=== PATIENT | male | born 1980 | race Caucasian/White ===

== ENCOUNTER 2020-05-20 21:05 | Emergency (ER) | payer SELFPAY ==
[~2020-05-20] VITALS: Ht 185.4 cm; Wt 127.0 kg
[~2020-05-20 21:05] MED LIST: ATEN25TA PO; Aspirin PO; HYDR2TAB4 PO; LORA-258 PO; PANT40TA2 PO
--- NOTE | 2020-05-20 21:35 | NUR ---
PT CAME TO THE ED C/O GENERALIZED ABD PAIN X 30 MINS. PT STATES " I DRANK TEQUILA BUT I STARTED SEEING DARK SPOTS SOON I WOKE UP". PT AAX4, VSS, RESPIRATIONS ARASELI AND UNLABORED ON RA W/ NAD NOTED. WILL CONTINUE TO MONITOR
--- NOTE | 2020-05-20 22:14 | NUR ---
DR MORA AT BEDSIDE FOR EVAL
[2020-05-20] MEDS ORDERED: MAG HYDROX/AL HYDROX/SIMETH 30 ML UDC ONE (22:19)
[2020-05-20] MEDS ORDERED: LIDOCAINE VISCOUS 2% UD 15 ML UDC ONE (22:19)
[2020-05-20] MEDS ORDERED: ONDANSETRON HCL/PF 4 MG/2 ML VIAL ONE (22:19)
[2020-05-20] MEDS ORDERED: LIDOCAINE VISCOUS 2% UD 15 ML UDC MM ONE (22:30)
[2020-05-20] MEDS ORDERED: ONDANSETRON HCL/PF 4 MG/2 ML VIAL IVP ONE (22:30)
[2020-05-20] MEDS ORDERED: MAG HYDROX/AL HYDROX/SIMETH 30 ML UDC PO ONE (22:30)
[2020-05-20] MEDS ORDERED: IV NS 0.9% 1,000 ML BAG IV ONE (22:30)
[2020-05-20 22:35] LABS: BASOPHILS # (AUTO) 0.1 /CMM (0.0-0.2); BASOPHILS % (AUTO) 0.8 % (0.0-2.0); HEMATOCRIT 46 % (39-51); HEMOGLOBIN 15.9 g/dL (13.5-17.5); LYMPHOCYTES # (AUTO) 2.2 /CMM (0.8-4.8); LYMPHOCYTES % (AUTO) 32.7 % (20.0-44.0); MEAN CORPUSCULAR HGB CONC 35 g/dl (31.0-36.0); MEAN CORPUSCULAR VOLUME 94 fL (80-96); MONOCYTES # (AUTO) 0.6 /CMM (0.1-1.30); MONOCYTES % (AUTO) 8.4 % (2.0-12.0); NEUTROPHILS # (AUTO) 3.8 /CMM (1.8-8.9); NEUTROPHILS % (AUTO) 56.1 % (43.0-81.0); PLATELET COUNT (AUTO) 277 /CMM (150-450); RED BLOOD CELL COUNT(AUTO) 4.88 MIL/uL (4.5-6.0); WHITE BLOOD COUNT (AUTO) 6.8 K/uL (4.3-11.0)
--- NOTE | 2020-05-20 22:36 | NUR ---
BLOOD COLLECTED AND SENT TO LAB
[2020-05-20 22:51] LABS: ALBUMIN 4.1 g/dL (3.4-5.0); BILIRUBIN,TOTAL 0.3 mg/dL (0.2-1.0); CALCIUM, SERUM 9.2 mg/dL (8.5-10.1); POTASSIUM 3.8 mmol/L (3.5-5.1); TOTAL PROTEIN, SERUM 7.6 g/dL (6.4-8.2)
--- NOTE | 2020-05-20 23:39 | NUR ---
Patient discharged to home in stable condition. Written and verbal after care instructions given. Patient verbalizes understanding of instruction.IV removed. Catheter intact and site benign. Pressure and 4x4 applied to site. No bleeding noted.
[2020-05-20 23:40] VITALS: BP 124/87
== END 2020-05-20 23:40 | disposition home or self-care (01) ==
LOC: ER 21:08
DX: K21.9 Gastro-esophageal reflux disease without esophagitis (principal); I10 Essential (primary) hypertension; F41.9 Anxiety disorder, unspecified; Z98.890 Other specified postprocedural states; Z88.0 Allergy status to penicillin; Z88.7 Allergy status to serum and vaccine; Z79.899 Other long term (current) drug therapy; Z79.82 Long term (current) use of aspirin
CPT/HCPCS: 36415; 80048; 80076; 83690; 85025; 96361; 96374; 99283; J2405; J7030

== ENCOUNTER 2020-05-31 12:28 | Emergency (ER) | payer SELFPAY ==
[~2020-05-31] VITALS: Ht 185.4 cm; Wt 127.0 kg
[2020-05-31 12:35] VITALS: BP 164/102
--- NOTE | 2020-05-31 12:49 | NUR ---
SEEN AND EXAMINED BY .
[2020-05-31 13:31] LABS: ALBUMIN 4.4 g/dL (3.4-5.0); BILIRUBIN,DIRECT 0.1 mg/dL (0.0-0.2); BILIRUBIN,TOTAL 0.3 mg/dL (0.2-1.0); TOTAL PROTEIN, SERUM 7.8 g/dL (6.4-8.2)
--- NOTE | 2020-05-31 13:48 | NUR ---
Patient discharged to home in stable condition. Written and verbal after care instructions given. Patient verbalizes understanding of instruction.
== END 2020-05-31 13:49 | disposition home or self-care (01) ==
LOC: ER 12:32
DX: K76.0 Fatty (change of) liver, not elsewhere classified (principal); I10 Essential (primary) hypertension; K21.9 Gastro-esophageal reflux disease without esophagitis; F41.9 Anxiety disorder, unspecified; Z98.890 Other specified postprocedural states; Z88.0 Allergy status to penicillin; Z88.8 Allergy status to other drugs, medicaments and biological substances; Z79.899 Other long term (current) drug therapy; Z79.82 Long term (current) use of aspirin
CPT/HCPCS: 36415; 80076-TC

== ENCOUNTER 2020-12-19 17:29 | Emergency (ER) | payer OTHER ==
[~2020-12-19] VITALS: Ht 185.4 cm; Wt 131.1 kg
[2020-12-19 17:55] VITALS: BP 158/99
[2020-12-19] MEDS ORDERED: LIDOCAINE MPF 1%-EPI 1:200,000 30 ML VIAL IJ ONE (18:21)
[2020-12-19] MEDS ORDERED: oxyCODONE/APAP (5/325 MG) 1 UDTAB TABLET ONE (18:27)
[2020-12-19] MEDS ORDERED: oxyCODONE/APAP (5/325 MG) 1 UDTAB TABLET PO ONE (18:30)
--- NOTE | 2020-12-19 18:46 | NUR ---
I&D DONE BY MARISSA ADDISON. COVERED WITH DRY DRESSING.
[2020-12-19] MEDS ORDERED: IBUP-1955 PO (19:29)
[2020-12-19] MEDS ORDERED: OXYC-128 PO (19:29)
[2020-12-19] MEDS ORDERED: CEPH500C2 PO (19:29)
[2020-12-19] MEDS ORDERED: SULF1TAB48 PO (19:29)
[2020-12-19] MEDS ORDERED: CEPHALEXIN MONOHYDRATE 500 MG CAPSULE PO ONE ×2 (19:30→19:35)
[2020-12-19] MEDS ORDERED: SULFAMETH/TRIMETH 800/160 MG 1 UDTAB TABLET PO ONE (19:30)
[2020-12-19] MEDS ORDERED: SULFAMETH/TRIMETH 800/160 MG 1 UDTAB TABLET ONE (19:36)
--- NOTE | 2020-12-19 19:40 | NUR ---
Patient discharged to home in stable condition. Written and verbal after care instructions given. Patient verbalizes understanding of instruction. Pt ambulatory with a steady gait
== END 2020-12-19 19:40 | disposition home or self-care (01) ==
LOC: ER 17:34
DX: L02.212 Cutaneous abscess of back [any part, except buttock and flank] (principal); I10 Essential (primary) hypertension; K21.9 Gastro-esophageal reflux disease without esophagitis; F41.9 Anxiety disorder, unspecified; Z98.890 Other specified postprocedural states; Z88.0 Allergy status to penicillin; Z79.899 Other long term (current) drug therapy
CPT/HCPCS: 10060; 72100; 99284; J3490

== ENCOUNTER 2021-01-31 08:40 | Emergency (ER) | payer OTHER ==
[~2021-01-31] VITALS: Ht 185.4 cm; Wt 130.2 kg
[~2021-01-31 08:40] MED LIST changes: +CEPH500C2 PO; +IBUP-1955 PO; +OXYC-128 PO; +SULF1TAB48 PO
--- NOTE | 2021-01-31 08:55 | NUR ---
ringing in the L ear x 2 weeks. Patient a/ox4, breathing even and unlabored, no sob noted.
--- NOTE | 2021-01-31 09:00 | NUR ---
dr. stovall at bedside for eval.
--- NOTE | 2021-01-31 09:20 | NUR ---
iv line established, blood drawn and sent to lab.
[2021-01-31 09:23] LABS: BASOPHILS % (AUTO) 0.6 % (0.0-2.0); HEMATOCRIT 48 % (39-51); HEMOGLOBIN 16.3 g/dL (13.5-17.5); LYMPHOCYTES # (AUTO) 1.9 /CMM (0.8-4.8); LYMPHOCYTES % (AUTO) 26.8 % (20.0-44.0); MEAN CORPUSCULAR HGB CONC 34 g/dl (31.0-36.0); MEAN CORPUSCULAR VOLUME 94 fL (80-96); MONOCYTES # (AUTO) 0.5 /CMM (0.1-1.30); MONOCYTES % (AUTO) 7.6 % (2.0-12.0); NEUTROPHILS # (AUTO) 4.5 /CMM (1.8-8.9); PLATELET COUNT (AUTO) 319 /CMM (150-450); RED BLOOD CELL COUNT(AUTO) 5.08 MIL/uL (4.5-6.0)
[2021-01-31] MEDS ORDERED: IV NS 0.9% 1,000 ML BAG IV ONE (09:30)
[2021-01-31 09:37] LABS: CALCIUM, SERUM 9.4 mg/dL (8.5-10.1); CARBON DIOXIDE 30 mmol/L (21-32); CHLORIDE 103 mmol/L (98-107); GLUCOSE 80 mg/dL (74-106); POTASSIUM 3.9 mmol/L (3.5-5.1); SODIUM SERUM 142 mmol/L (136-145); UREA NITROGEN, BLOOD 11 mg/dL (7-18)
[2021-01-31 09:41] LABS: ALANINE AMINOTRANSFERASE 61 U/L (12-78); ALBUMIN 4.5 g/dL (3.4-5.0); ALKALINE PHOSPHATASE 40 U/L (46-116); ASPARTATE AMINOTRANSFERASE 29 U/L (15-37); BILIRUBIN,DIRECT 0.1 mg/dL (0.0-0.2); BILIRUBIN,TOTAL 0.2 mg/dL (0.2-1.0); TOTAL PROTEIN, SERUM 8.1 g/dL (6.4-8.2)
[2021-01-31] MEDS ORDERED: CIPR7.5D LEFT EAR (10:29)
--- NOTE | 2021-01-31 10:42 | NUR ---
Patient a/ox4, breathing even and unlabored, no sob noted, ambulatory with steady gait. IV removed. Catheter intact and site benign. Pressure and 4x4 applied to site. No bleeding noted.Patient discharged to home in stable condition. Written and verbal after care instructions given. Patient verbalizes understanding of instruction.
[2021-01-31 10:43] VITALS: BP 157/82
== END 2021-01-31 10:43 | disposition home or self-care (01) ==
LOC: ER 09:05
DX: H60.92 Unspecified otitis externa, left ear (principal); R00.2 Palpitations; R42 Dizziness and giddiness; F10.10 Alcohol abuse, uncomplicated; I10 Essential (primary) hypertension; R94.31 Abnormal electrocardiogram [ECG] [EKG]; K21.9 Gastro-esophageal reflux disease without esophagitis; F41.9 Anxiety disorder, unspecified; Z88.0 Allergy status to penicillin; Z98.890 Other specified postprocedural states; Z79.899 Other long term (current) drug therapy; Y90.9 Presence of alcohol in blood, level not specified
CPT/HCPCS: 36415; 71045; 80048; 80076; 84484; 85025; 93005 ×2; 96360; 99285; J7030

== ENCOUNTER 2021-06-02 07:51 | Emergency (ER) | payer OTHER ==
[~2021-06-02] VITALS: Ht 185.4 cm; Wt 130.2 kg
[~2021-06-02 07:51] MED LIST changes: +CIPR7.5D9 LEFT EAR
--- NOTE | 2021-06-02 08:00 | NUR ---
PT BIB SELF C/O SHARP CHEST PAIN STARTED 30 MINS PLAN COORDINATOR AND HEAD PRESSURE X 2 WEEKS. PT IS AAOX4, NOT IN RESPIRATORY DISTRESS, HOOKED TO POLICY DIRECTOR, KEPT RESTED AND COMFORTABLE. WILL CONTINUE TO MONITOR.
--- NOTE | 2021-06-02 08:04 | NUR ---
MILLING MACHINE SET UP OPERATOR AT BEDSIDE FOR EKG.
--- NOTE | 2021-06-02 08:20 | NUR ---
IV LINE ESTABLISHED BLOOD DRAWN AND SENT TO LAB.
[2021-06-02 08:26] LABS: BASOPHILS # (AUTO) 0.1 K/uL (0.0-0.2); BASOPHILS % (AUTO) 0.8 % (0.0-2.0); EOSINOPHILS % (AUTO) 2.4 % (0.0-6.0); HEMATOCRIT 47 % (39-51); LYMPHOCYTES # (AUTO) 2.1 K/uL (0.8-4.8); LYMPHOCYTES % (AUTO) 33.6 % (20.0-44.0); MEAN CORPUSCULAR HGB CONC 34 g/dl (31.0-36.0); MEAN CORPUSCULAR VOLUME 95 fL (80-96); MONOCYTES # (AUTO) 0.5 K/uL (0.1-1.30); MONOCYTES % (AUTO) 8.1 % (2.0-12.0); NEUTROPHILS # (AUTO) 3.5 K/uL (1.8-8.9); NEUTROPHILS % (AUTO) 55.1 % (43.0-81.0); PLATELET COUNT (AUTO) 270 K/uL (150-450); RED BLOOD CELL COUNT(AUTO) 4.94 MIL/uL (4.5-6.0); WHITE BLOOD COUNT (AUTO) 6.4 K/uL (4.3-11.0)
[2021-06-02 08:33] LABS: CALCIUM, SERUM 9.1 mg/dL (8.5-10.1); CARBON DIOXIDE 28 mmol/L (21-32); CHLORIDE 104 mmol/L (98-107); CREATININE 0.9 mg/dL (0.6-1.3); GLUCOSE 93 mg/dL (74-106); POTASSIUM 4.6 mmol/L (3.5-5.1); SODIUM SERUM 142 mmol/L (136-145); UREA NITROGEN, BLOOD 10 mg/dL (7-18)
--- NOTE | 2021-06-02 08:40 | NUR ---
COLD ROLLING SUPERVISOR AT BEDSIDE FOR XRAY.
[2021-06-02] MEDS ORDERED: LORAZEPAM INJ 2 MG/ML VIAL ONE (08:58)
[2021-06-02] MEDS ORDERED: LORAZEPAM INJ 2 MG/ML VIAL IV ONE (09:00)
[2021-06-02] MEDS ORDERED: LORA-259 PO (09:47)
[2021-06-02 10:06] VITALS: BP 138/100
--- NOTE | 2021-06-02 10:06 | NUR ---
IV removed. Catheter intact and site benign. Pressure and 4x4 applied to site. No bleeding noted. Patient discharged to home in stable condition. Written and verbal after care instructions given. Patient verbalizes understanding of instruction.
== END 2021-06-02 10:07 | disposition home or self-care (01) ==
LOC: ER 07:57
DX: R07.89 Other chest pain (principal); F41.9 Anxiety disorder, unspecified; I10 Essential (primary) hypertension; K21.9 Gastro-esophageal reflux disease without esophagitis; Z98.890 Other specified postprocedural states; Z88.0 Allergy status to penicillin; Z88.8 Allergy status to other drugs, medicaments and biological substances; Z79.899 Other long term (current) drug therapy; Z79.82 Long term (current) use of aspirin
CPT/HCPCS: 36415; 71045; 80048; 84484; 85025; 93005; 96374; 99285; J2060

== ENCOUNTER 2021-06-19 17:24 | Emergency (ER) | payer OTHER ==
[~2021-06-19] VITALS: Ht 185.4 cm; Wt 132.0 kg
[~2021-06-19 17:24] MED LIST changes: +LORA-259 PO
[2021-06-19 17:46] VITALS: BP 139/77
--- NOTE | 2021-06-19 17:48 | NUR ---
TO ER BED 1, SENT BY PMD DUE TO A FOREIGN OBJECT SEEN IN LEFT EAR, C/O DIZZINESS FOR 3WEEKS, AAOX4, BREATHING EVEN AND NON LABORED
[2021-06-19] MEDS ORDERED: DOCUSATE SODIUM LIQ 100 MG/10 ML UDC ONE (17:56)
--- NOTE | 2021-06-19 18:00 | NUR ---
EMT AT BEDSIDE FOR EAR LAVAGE
[2021-06-19] MEDS ORDERED: OFLO5DRO5 EACH EAR (18:58)
== END 2021-06-19 19:13 | disposition home or self-care (01) ==
LOC: ER 17:30
DX: H61.23 Impacted cerumen, bilateral (principal); I10 Essential (primary) hypertension; Z98.890 Other specified postprocedural states; Z88.0 Allergy status to penicillin; Z88.8 Allergy status to other drugs, medicaments and biological substances; Z79.899 Other long term (current) drug therapy; Z79.82 Long term (current) use of aspirin

== ENCOUNTER 2021-08-28 05:40 | Emergency (ER) | payer OTHER ==
[~2021-08-28] VITALS: Ht 188 cm; Wt 131.1 kg
[~2021-08-28 05:40] MED LIST changes: +OFLO5DRO5 EACH EAR
--- NOTE | 2021-08-28 06:25 | NUR ---
pt came in c/o constipation for few days stating having small amount of bm. pt is a/o x4.
[2021-08-28] MEDS ORDERED: ONDANSETRON HCL/PF 4 MG/2 ML VIAL IVP ONE (06:30)
[2021-08-28] MEDS ORDERED: PANTOPRAZOLE 40 MG VIAL IV ONE (06:30)
[2021-08-28] MEDS ORDERED: IV NS 0.9% 1,000 ML BAG IV ONE (06:30)
[2021-08-28] MEDS ORDERED: MAG HYDROX/AL HYDROX/SIMETH 30 ML UDC PO ONE (06:30)
[2021-08-28] MEDS ORDERED: LIDOCAINE VISCOUS 2% UD 15 ML UDC MM ONE (06:30)
[2021-08-28] MEDS ORDERED: ONDANSETRON HCL/PF 4 MG/2 ML VIAL ONE (06:38)
[2021-08-28] MEDS ORDERED: PANTOPRAZOLE 40 MG VIAL ONE (06:38)
[2021-08-28] MEDS ORDERED: MAG HYDROX/AL HYDROX/SIMETH 30 ML UDC ONE (06:38)
[2021-08-28] MEDS ORDERED: MAGNESIUM HYDROXIDE 30 ML UDC ONE (06:40)
[2021-08-28 06:52] LABS: BASOPHILS # (AUTO) 0.1 K/uL (0.0-0.2); BASOPHILS % (AUTO) 0.8 % (0.0-2.0); EOSINOPHILS % (AUTO) 2.7 % (0.0-6.0); HEMATOCRIT 46 % (39-51); HEMOGLOBIN 15.9 g/dL (13.5-17.5); LYMPHOCYTES # (AUTO) 2.3 K/uL (0.8-4.8); LYMPHOCYTES % (AUTO) 31.6 % (20.0-44.0); MEAN CORPUSCULAR HGB CONC 34 g/dl (31.0-36.0); MEAN CORPUSCULAR VOLUME 94 fL (80-96); MONOCYTES # (AUTO) 0.7 K/uL (0.1-1.30); MONOCYTES % (AUTO) 9.2 % (2.0-12.0); NEUTROPHILS # (AUTO) 4.1 K/uL (1.8-8.9); NEUTROPHILS % (AUTO) 55.7 % (43.0-81.0); PLATELET COUNT (AUTO) 265 K/uL (150-450); RED BLOOD CELL COUNT(AUTO) 4.92 MIL/uL (4.5-6.0); WHITE BLOOD COUNT (AUTO) 7.3 K/uL (4.3-11.0)
[2021-08-28] MEDS ORDERED: LIDOCAINE VISCOUS 2% UD 15 ML UDC ONE (06:52)
[2021-08-28 07:08] LABS: ALBUMIN 4.2 g/dL (3.4-5.0); BILIRUBIN,DIRECT 0.1 mg/dL (0.0-0.2); BILIRUBIN,TOTAL 0.3 mg/dL (0.2-1.0); CALCIUM, SERUM 9.5 mg/dL (8.5-10.1); CREATININE 0.9 mg/dL (0.6-1.3); POTASSIUM 4.3 mmol/L (3.5-5.1); TOTAL PROTEIN, SERUM 7.9 g/dL (6.4-8.2)
[2021-08-28 07:22] LABS: BILIRUBIN,URINE NEGATIVE (NEGATIVE); LEUKOCYTE ESTERASE ,URINE NEGATIVE (NEGATIVE); NITRITE, URINE NEGATIVE (NEGATIVE); PROTEIN,URINE NEGATIVE (NEGATIVE); UGLUCOSE NEGATIVE (NEGATIVE); UROBILINOGEN,URINE 0.2 EU/dL (0.2)
[2021-08-28 07:48] LABS: COLOR,URINE STRAW (YELLOW)
[2021-08-28] MEDS ORDERED: POLY17PO4 PO (08:26)
[2021-08-28] MEDS ORDERED: ONDA4TAB5 PO (08:26)
[2021-08-28 08:37] VITALS: BP 139/96
--- NOTE | 2021-08-28 08:37 | NUR ---
IV removed. Catheter intact and site benign. Pressure and 4x4 applied to site. No bleeding noted.Patient discharged to home in stable condition. Written and verbal after care instructions given. Patient verbalizes understanding of instruction.
== END 2021-08-28 08:38 | disposition home or self-care (01) ==
LOC: ER 05:40
DX: R10.9 Unspecified abdominal pain (principal); K59.00 Constipation, unspecified; R11.0 Nausea; I10 Essential (primary) hypertension; Z98.890 Other specified postprocedural states; Z88.0 Allergy status to penicillin; Z88.8 Allergy status to other drugs, medicaments and biological substances; Z79.899 Other long term (current) drug therapy; Z79.82 Long term (current) use of aspirin
CPT/HCPCS: 36415; 74021; 80048; 80076; 81003; 83690; 85025; 96361; 96374; 96375; 99284; C9113; J2405; J7030

== ENCOUNTER 2021-09-08 15:28 | Emergency (ER) | payer OTHER ==
[~2021-09-08] VITALS: Ht 185.4 cm; Wt 131.5 kg
[~2021-09-08 15:28] MED LIST changes: +ONDA4TAB5 PO; +POLY17PO4 PO
[2021-09-08 15:45] VITALS: BP 135/67
--- NOTE | 2021-09-08 15:51 | NUR ---
The patient bibs for c/o cough x 3 days, vaccinated. In room air and denies SOB. Respiration regular and unlabored. Will continue to monitor the patient.
--- NOTE | 2021-09-08 16:38 | NUR ---
SEEN AND EXAMINED BY .
[2021-09-08] MEDS ORDERED: IBUP-1955 PO (18:00)
[2021-09-08] MEDS ORDERED: BENZ-13 PO (18:00)
--- NOTE | 2021-09-08 18:05 | NUR ---
Patient discharged to home in stable condition. Written and verbal after care instructions given. Patient verbalizes understanding of instruction.
== END 2021-09-08 18:06 | disposition home or self-care (01) ==
LOC: ER 15:29
DX: J06.9 Acute upper respiratory infection, unspecified (principal); R05.9 Cough, unspecified; Z20.822 Contact with and (suspected) exposure to COVID-19; Z88.0 Allergy status to penicillin; I10 Essential (primary) hypertension; Z79.899 Other long term (current) drug therapy
CPT/HCPCS: 71045; 87426; 99284; C9803; U0003

== ENCOUNTER 2021-09-12 00:24 | Emergency (ER) | payer OTHER ==
[~2021-09-12] VITALS: Ht 185.4 cm; Wt 132.0 kg
[~2021-09-12 00:24] MED LIST changes: +BENZ-13 PO
[2021-09-12 00:32] VITALS: BP 138/81
== END 2021-09-12 00:52 | disposition home or self-care (01) ==
LOC: ER 00:26
DX: J06.9 Acute upper respiratory infection, unspecified (principal); Z88.0 Allergy status to penicillin; Z79.899 Other long term (current) drug therapy

== ENCOUNTER 2022-02-02 22:34 | Emergency (ER) | payer OTHER ==
[~2022-02-02] VITALS: Ht 188 cm; Wt 127.0 kg
--- NOTE | 2022-02-02 23:16 | NUR ---
BIBSELF C/O FEELING ON AND OFF PALPITATIONS FOR THE PAST DAY, FEELING DIZZY.PLACED COMFORTABLY IN BED. VITALS CHECKED.
--- NOTE | 2022-02-02 23:21 | NUR ---
URINE SPECIMEN SENT TO LAB
[2022-02-03] VITALS: BP 140/71
[2022-02-03] LABS: BASOPHILS % (AUTO) 0.5 % (0.0-2.0); EOSINOPHILS % (AUTO) 2.6 % (0.0-6.0); HEMATOCRIT 44 % (39-51); LYMPHOCYTES # (AUTO) 2.9 K/uL (0.8-4.8); LYMPHOCYTES % (AUTO) 35.9 % (20.0-44.0); MEAN CORPUSCULAR HGB CONC 34 g/dl (31.0-36.0); MEAN CORPUSCULAR VOLUME 92 fL (80-96); MONOCYTES # (AUTO) 0.8 K/uL (0.1-1.30); MONOCYTES % (AUTO) 9.9 % (2.0-12.0); NEUTROPHILS # (AUTO) 4.2 K/uL (1.8-8.9); NEUTROPHILS % (AUTO) 51.1 % (43.0-81.0); PLATELET COUNT (AUTO) 249 K/uL (150-450); RED BLOOD CELL COUNT(AUTO) 4.74 MIL/uL (4.5-6.0); WHITE BLOOD COUNT (AUTO) 8.2 K/uL (4.3-11.0)
[2022-02-03 00:14] LABS: CALCIUM, SERUM 9.1 mg/dL (8.5-10.1); CARBON DIOXIDE 29 mmol/L (21-32); CHLORIDE 104 mmol/L (98-107); CREATININE 0.9 mg/dL (0.6-1.3); GLUCOSE 148 mg/dL (74-106); POTASSIUM 3.6 mmol/L (3.5-5.1); SODIUM SERUM 139 mmol/L (136-145); UREA NITROGEN, BLOOD 17 mg/dL (7-18)
--- NOTE | 2022-02-03 01:06 | NUR ---
Patient discharged to home in stable condition. Written and verbal after care instructions given. Patient verbalizes understanding of instruction.
== END 2022-02-03 01:09 | disposition home or self-care (01) ==
LOC: ER 22:37
DX: R00.2 Palpitations (principal); R51.9 Headache, unspecified; I10 Essential (primary) hypertension; Z87.19 Personal history of other diseases of the digestive system; Z88.8 Allergy status to other drugs, medicaments and biological substances; Z79.899 Other long term (current) drug therapy
CPT/HCPCS: 36415; 71045-TC; 80048-TC; 84443-TC; 84484-TC; 85025-TC

== ENCOUNTER 2022-03-01 12:46 | Emergency (ER) | payer OTHER ==
[~2022-03-01] VITALS: Ht 185.4 cm; Wt 135.2 kg
[2022-03-01 12:57] VITALS: BP 156/92
--- NOTE | 2022-03-01 13:08 | NUR ---
X RAY AT BEDSIDE
--- NOTE | 2022-03-01 13:40 | NUR ---
Patient discharged to home in stable condition. Written and verbal after care instructions given. Patient verbalizes understanding of instruction.
== END 2022-03-01 13:41 | disposition home or self-care (01) ==
LOC: ER 12:52
DX: S61.211A Laceration without foreign body of left index finger without damage to nail, initial encounter (principal); I10 Essential (primary) hypertension; Z87.19 Personal history of other diseases of the digestive system; Z88.8 Allergy status to other drugs, medicaments and biological substances; Z79.899 Other long term (current) drug therapy; W26.8XXA Contact with other sharp object(s), not elsewhere classified, initial encounter; Y93.89 Activity, other specified; Y92.89 Other specified places as the place of occurrence of the external cause; Y99.8 Other external cause status
CPT/HCPCS: 73140-TC

== ENCOUNTER 2022-05-10 19:23 | Emergency (ER) | payer OTHER ==
[~2022-05-10] VITALS: Ht 190.5 cm; Wt 122.5 kg
--- NOTE | 2022-05-10 19:33 | NUR ---
BIBS C/O GOING ON A 2 WEEK BINGE OF DRINKING HARD LIQUOR. +ACID REFLUX +DARK COLORED STOOL & BLOODY NOSE. PT AWAKE A/OX4. TOLERATING R/A WELL WITH NO RESP DISTRESS OR SOB. SAFETY MEASURES IN PLACE. CONNECTED PT TO POX AND MONITOR.
[2022-05-10 20:53] LABS: BASOPHILS % (AUTO) 0.6 % (0.0-2.0); HEMATOCRIT 43 % (39-51); HEMOGLOBIN 14.6 g/dL (13.5-17.5); LYMPHOCYTES # (AUTO) 3.1 K/uL (0.8-4.8); LYMPHOCYTES % (AUTO) 39.4 % (20.0-44.0); MEAN CORPUSCULAR HGB CONC 34 g/dl (31.0-36.0); MEAN CORPUSCULAR VOLUME 93 fL (80-96); MONOCYTES # (AUTO) 0.7 K/uL (0.1-1.30); MONOCYTES % (AUTO) 8.9 % (2.0-12.0); NEUTROPHILS # (AUTO) 3.8 K/uL (1.8-8.9); NEUTROPHILS % (AUTO) 49.1 % (43.0-81.0); PLATELET COUNT (AUTO) 255 K/uL (150-450); RED BLOOD CELL COUNT(AUTO) 4.63 MIL/uL (4.5-6.0); WHITE BLOOD COUNT (AUTO) 7.8 K/uL (4.3-11.0)
[2022-05-10 21:00] LABS: CALCIUM, SERUM 8.7 mg/dL (8.5-10.1); CREATININE 0.9 mg/dL (0.6-1.3); POTASSIUM 3.7 mmol/L (3.5-5.1)
[2022-05-10 21:08] LABS: BILIRUBIN,DIRECT 0.1 mg/dL (0.0-0.2); BILIRUBIN,TOTAL 0.4 mg/dL (0.2-1.0); TOTAL PROTEIN, SERUM 7.4 g/dL (6.4-8.2)
[2022-05-10] MEDS ORDERED: OMEP40CA21 PO (21:21)
[2022-05-10] MEDS ORDERED: CALCIUM CARBONATE 500 MG TAB.CHEW ONE (21:28)
[2022-05-10] MEDS: CALCIUM CARBONATE 500 MG TAB.CHEW PO ONE (21:29)
[2022-05-10 21:30] VITALS: BP 164/97
--- NOTE | 2022-05-10 21:30 | NUR ---
Patient discharged to home in stable condition. RX Written and verbal after care instructions given. Patient verbalizes understanding of instruction. PT ambulatory with a steady gait
== END 2022-05-10 21:31 | disposition home or self-care (01) ==
LOC: ER 19:37
DX: K29.20 Alcoholic gastritis without bleeding (principal); F10.10 Alcohol abuse, uncomplicated; I10 Essential (primary) hypertension; Z88.0 Allergy status to penicillin; Z88.8 Allergy status to other drugs, medicaments and biological substances; Z79.899 Other long term (current) drug therapy; Y90.9 Presence of alcohol in blood, level not specified
CPT/HCPCS: 36415; 80048-TC; 80076-TC; 83690-TC; 85025-TC; 85730-TC

== ENCOUNTER 2022-05-26 04:41 | Emergency (ER) | payer OTHER ==
[~2022-05-26] VITALS: Ht 182.9 cm; Wt 104.3 kg
[~2022-05-26 04:41] MED LIST changes: +OMEP40CA21 PO
[2022-05-26 04:56] VITALS: BP 127/70
== END 2022-05-26 04:59 | disposition home or self-care (01) ==
LOC: ER 04:43
DX: Z53.21 Procedure and treatment not carried out due to patient leaving prior to being seen by health care provider (principal); I10 Essential (primary) hypertension; Z98.890 Other specified postprocedural states

== ENCOUNTER 2022-07-20 10:10 | Emergency (ER) | payer OTHER ==
[~2022-07-20] VITALS: Ht 190.5 cm; Wt 124.7 kg
[2022-07-20] MEDS ORDERED: CYCLOBENZAPRINE 10 MG TABLET ONE (10:47)
[2022-07-20] MEDS ORDERED: IBUPROFEN 400 MG TABLET ONE (10:48)
--- NOTE | 2022-07-20 10:50 | NUR ---
FLEXERIL AND MOTRIN PO GIVEN, ARPAN WELL.
[2022-07-20] MEDS ORDERED: CYCLOBENZAPRINE 10 MG TABLET PO ONE (11:00)
[2022-07-20] MEDS ORDERED: IBUPROFEN 400 MG TABLET PO ONE (11:00)
[2022-07-20] MEDS ORDERED: CYCL10TA9 PO (11:50)
[2022-07-20] MEDS ORDERED: IBUP-1957 PO (11:50)
--- NOTE | 2022-07-20 12:02 | NUR ---
Patient discharged to home in stable condition. Written and verbal after care instructions given. Patient verbalizes understanding of instruction.
[2022-07-20 12:03] VITALS: BP 140/85
== END 2022-07-20 12:04 | disposition home or self-care (01) ==
LOC: ER 10:10
DX: M25.571 Pain in right ankle and joints of right foot (principal); M54.16 Radiculopathy, lumbar region; I10 Essential (primary) hypertension; Z88.0 Allergy status to penicillin; Z88.8 Allergy status to other drugs, medicaments and biological substances; Z79.899 Other long term (current) drug therapy
CPT/HCPCS: 73502; 73610-TC

== ENCOUNTER 2024-05-28 07:01 | Emergency (ER) | payer MEDICAID, OTHER ==
[~2024-05-28] VITALS: Ht 190.5 cm; Wt 136.1 kg
[~2024-05-28 07:01] MED LIST changes: +CYCL10TA9 PO; +IBUP-1957 PO
--- NOTE | 2024-05-28 07:35 | NUR ---
RECEIVED PT 43 YRS MALE WALKING IN TO ED C/O PACK PAIN FOR ONE WEEK AWAKE AND ALERTFALLOW COMMAND
--- NOTE | 2024-05-28 08:28 | NUR ---
BACK FROM CT SCAN
[2024-05-28] MEDS ORDERED: OXYC-128 PO (09:26)
--- NOTE | 2024-05-28 09:30 | NUR ---
DR. STERN AT BED SIDE SPOOKING WITH PT ABOUT CT RESULT AND PLAN OF CARE
--- NOTE | 2024-05-28 10:02 | NUR ---
Patient discharged to home in stable condition. Written and verbal after care instructions given. Patient verbalizes understanding of instruction.
[2024-05-28 10:15] VITALS: BP 147/100; TEMP 98.2; O2SAT 97
== END 2024-05-28 10:17 | disposition home or self-care (01) ==
LOC: ER 07:07
DX: M54.16 Radiculopathy, lumbar region (principal); I10 Essential (primary) hypertension; Z79.1 Long term (current) use of non-steroidal anti-inflammatories (NSAID); Z98.890 Other specified postprocedural states; Z79.899 Other long term (current) drug therapy; Z88.0 Allergy status to penicillin; Z88.1 Allergy status to other antibiotic agents
CPT/HCPCS: 72131-TC; 73610-TC

== ENCOUNTER 2025-07-06 05:18 | Emergency (ER) | payer MEDICAID ==
[~2025-07-06] VITALS: Ht 193 cm; Wt 140.6 kg
[2025-07-06] MEDS ORDERED: ONDANSETRON HCL/PF 4 MG/2 ML VIAL ONE (05:42)
[2025-07-06] MEDS: ONDANSETRON HCL/PF 4 MG/2 ML VIAL IVP ONE (05:46)
[2025-07-06] MEDS: IV NS 0.9% 1,000 ML BAG IV ONE (05:46)
[2025-07-06 05:50] LABS: PLATELET COUNT (AUTO) 267 K/uL (150-450); RED BLOOD CELL COUNT(AUTO) 4.89 MIL/uL (4.5-6.0); RED CELL DISTRIBUTION WIDTH 13.0 % (11.5-15.0); WHITE BLOOD COUNT (AUTO) 6.2 K/uL (4.3-11.0)
[2025-07-06 05:56] LABS: CALCIUM, SERUM 9.1 mg/dL (8.5-10.1); CREATININE 1.0 mg/dL (0.6-1.3); SODIUM SERUM 141.0 mmol/L (136-145); UREA NITROGEN, BLOOD 9.0 mg/dL (7-18)
[2025-07-06 06:04] LABS: ASPARTATE AMINOTRANSFERASE 32.0 U/L (15-37); TOTAL PROTEIN, SERUM 7.6 g/dL (6.4-8.2)
[2025-07-06 06:19] LABS: APPEARANCE,URINE CLEAR (CLEAR); BLOOD, URINE TRACE-INTA Ery/uL (NEGATIVE); LEUKOCYTE ESTERASE ,URINE NEGATIVE (NEGATIVE); NITRITE, URINE NEGATIVE (NEGATIVE); UGLUCOSE NEGATIVE (NEGATIVE)
[2025-07-06] MEDS: FAMOTIDINE/PF INJ 20 MG/2 ML VIAL IV ONE (06:20)
[2025-07-06] MEDS ORDERED: FAMOTIDINE/PF INJ 20 MG/2 ML VIAL IV ONE (06:20)
[2025-07-06] MEDS ORDERED: LORAZEPAM 1 MG TABLET ONE (07:00)
[2025-07-06] MEDS ORDERED: CLONIDINE HCL 0.1 MG TABLET ONE (07:01)
[2025-07-06] MEDS: CLONIDINE HCL 0.1 MG TABLET PO ONE (07:01)
[2025-07-06] MEDS: LORAZEPAM 1 MG TABLET PO ONE (07:01)
[2025-07-06] MEDS ORDERED: FAMO-131 PO (07:50)
[2025-07-06] MEDS ORDERED: LORA-259 PO (07:50)
[2025-07-06 08:02] LABS: ADD URINE CULTURE NO; SQUAMOUS EPITHELIAL CELL,UR Few /HPF (None Seen)
[2025-07-06 08:05] VITALS: BP 159/108; TEMP 98.1; O2SAT 98
== END 2025-07-06 08:06 | disposition home or self-care (01) ==
LOC: ER 05:22
DX: R10.13 Epigastric pain (principal); R11.0 Nausea; F10.10 Alcohol abuse, uncomplicated; I10 Essential (primary) hypertension; Z76.0 Encounter for issue of repeat prescription; F41.9 Anxiety disorder, unspecified; Z79.1 Long term (current) use of non-steroidal anti-inflammatories (NSAID); Z88.0 Allergy status to penicillin; Z88.7 Allergy status to serum and vaccine; Z87.19 Personal history of other diseases of the digestive system; Z79.899 Other long term (current) drug therapy; Y90.9 Presence of alcohol in blood, level not specified
CPT/HCPCS: 99285; 96374; 96361; 96375; 93005; 85025; 80048; 83690; 80076; 81001; 36415; 84484; J1308; J2405; J7030